=== PATIENT | female | born 1965 | race Caucasian/White ===

== ENCOUNTER 2021-07-30 17:41 | Emergency (ER) | payer BC ==
[2021-07-30 18:04] VITALS: RESP 18; TEMP 98.1
--- NOTE | 2021-07-30 20:43 | ED ---
Extremity Problem HPI - General Chief complaint: Extremity Problem,Nontraumatic Stated complaint: Needs US-Sent by PCP Time Seen by Provider: 07/30/21 20:26 Source: patient, RN notes reviewed Mode of arrival: ambulatory Limitations: no limitations - History of Present Illness Initial comments: Patient presents to the emergency department complaining of left lower leg swelling and some pain which starts the knee and does radiate downward. Patient saw her orthopedic physician today, Dr. Rogers and had a corticosteroid injection into the left knee. He sent over here for venous Doppler. Patient has been traveling, has a history DVT, patient has had multiple long car rides and plane rides over the past few weeks. Patient denies any shortness of breath or chest pain. No redness or erythema. No paresthesias. No headache, no fever or chills, no changes in vision or hearing, no sore throat or difficulty with speech, no neck pain, no chest pain or shortness of breath, no abdominal pain, no nausea or vomiting, no changes in urination or bowel movements, no numbness or tingling, no skin rashes or lesions. MD Complaint: extremity pain, extremity swelling - Related Data Home Medications Medication Instructions Recorded Confirmed Fluticasone/Umeclidin/Vilanter 1 puff INHALATION RT-DAILY 07/30/21 07/30/21 [Trelegy Ellipta 100-62.5-25] Lisinopril [Prinivil] 10 mg PO DAILY 07/30/21 07/30/21 Montelukast Sodium [Singulair] 10 mg PO HS PRN 07/30/21 07/30/21 Allergies Allergy/AdvReac Type Severity Reaction Status Date / Time ceftriaxone [From Rocephin] Allergy Unknown Verified 07/30/21 20:55 codeine Allergy Unknown Verified 07/30/21 20:55 Sulfa (Sulfonamide Allergy Unknown Verified 07/30/21 20:55 Antibiotics) Review of Systems ROS Statement: Those systems with pertinent positive or pertinent negative responses have been documented in the HPI. ROS Other: All systems not noted in ROS Statement are negative. Past Medical History Past Medical History: Asthma, Deep Vein Thrombosis (DVT), Thyroid Disorder History of Any Multi-Drug Resistant Organisms: None Reported Past Surgical History: Ear Surgery, Hysterectomy Past Psychological History: No Psychological Hx Reported Smoking Status: Never smoker Past Alcohol Use History: None Reported Past Drug Use History: None Reported General Exam Limitations: no limitations General appearance: alert, in no apparent distress Head exam: Present: atraumatic, normocephalic, normal inspection Eye exam: Present: normal appearance, PERRL, EOMI. Absent: scleral icterus, conjunctival injection, periorbital swelling ENT exam: Present: normal exam, mucous membranes moist Neck exam: Present: normal inspection. Absent: tenderness, meningismus, lymphadenopathy Respiratory exam: Present: normal lung sounds bilaterally. Absent: respiratory distress, wheezes, rales, rhonchi, stridor Cardiovascular Exam: Present: regular rate, normal rhythm, normal heart sounds. Absent: systolic murmur, diastolic murmur, rubs, gallop, clicks GI/Abdominal exam: Present: soft, normal bowel sounds. Absent: distended, tenderness, guarding, rebound, rigid Extremities exam: Present: normal inspection, full ROM, normal capillary refill, pedal edema (Scant bilateral edema noted.), other (Pulses intact, capillary refill less than 2 seconds. No erythema. Homans sign is negative. Tenderness about the left knee with minimal effusion. No evidence of infectious process. Full range of motion at the knee, ankle, foot, and phalanges.). Absent: tenderness, joint swelling, calf tenderness Back exam: Present: normal inspection Neurological exam: Present: alert, oriented X3, CN II-XII intact Psychiatric exam: Present: normal affect, normal mood Skin exam: Present: warm, dry, intact, normal color. Absent: rash Course Vital Signs 07/30/21 18:01 Temperature 98.1 F Pulse Rate 81 Respiratory 18 Rate Blood Pressure 132/77 O2 Sat by Pulse 96 Oximetry Medical Decision Making - Medical Decision Making Patient had plain film x-rays done at the orthopedic office today. Had a corticosteroid injection. No evidence of infectious process. We'll order a venous Doppler. The case was discussed in detail with ED attending physician. Presentation, findings, treatment plan discussed in detail. Dr. Lindquist Patient was told to return to the ER for any signs or symptoms worsen. Told to return immediately if any other problems arise. All questions answered. Treatment plan discussed. Patient in agreement Every effort has been made to ensure accuracy of this dictation. However, due to the limitations of electronic medical records and dictation devices, errors in charting still occur. negative for DVT. - Radiology Data Radiology results: report reviewed, image reviewed Disposition Clinical Impression: Left knee pain, Peripheral edema Disposition: HOME SELF-CARE Condition: Stable Instructions (If sedation given, give patient instructions): Osteoarthritis (ED) Additional Instructions: Elevate your legs as much as possible. Invest in compression stockings. Follow up with your orthopedic physician and your regular doctor. Follow-up with your regular physician as directed. Return to the ER immediately if any symptoms worsen, new symptoms arise, or any other problems develop. Is patient prescribed a controlled substance at d/c from ED?: No Referrals: Tejas Rogers MD [STAFF PHYSICIAN] - 1-2 days Time of Disposition: 22:28
--- NOTE | 2021-07-30 21:31 | US ---
EXAMINATION TYPE: US venous doppler duplex LowerExtremity LEFT DATE OF EXAM: 07/30/2021 9:16 PM COMPARISON: NONE CLINICAL HISTORY: Left lower extremity redness and swelling. Left lower extremity pain and swelling. Hx of DVT, hx of varicose veins and vein surgery. SIDE PERFORMED: Left TECHNIQUE: The lower extremity deep venous system is examined utilizing real time linear array sonog gris with graded compression, doppler sonography and color-flow sonography. VESSELS IMAGED: Common Femoral Vein Deep Femoral Vein Greater Saphenous Vein * Femoral Vein Popliteal Vein Small Saphenous Vein * Proximal Calf Veins (* superficial vessels) Left Leg: Negative for DVT. Varicose veins noted. IMPRESSION: Grayscale, color doppler, spectral doppler imaging performed of the deep veins of the lo wer extremities. There is normal flow, compressibility, vascular waveforms.
[2021-07-30 22:50] VITALS: BP 124/82; PULSE 60
== END 2021-07-30 22:56 | disposition home or self-care (01) ==
LOC: EC 17:41
DX: M25.562 Pain in left knee (principal); R60.0 Localized edema; J45.909 Unspecified asthma, uncomplicated; E07.9 Disorder of thyroid, unspecified; Z88.1 Allergy status to other antibiotic agents; Z88.2 Allergy status to sulfonamides; Z88.5 Allergy status to narcotic agent; Z86.718 Personal history of other venous thrombosis and embolism; Z90.710 Acquired absence of both cervix and uterus
CPT/HCPCS: 99283